=== PATIENT | male | born 1955 | race Caucasian/White ===

== ENCOUNTER 2023-08-19 06:22 | Inpatient (IN) | payer MEDICARE, OTHER, SELFPAY ==
[2023-08-07 09:19] VITALS: BMI 29.7
[2023-08-07 09:47] LABS: % Basophils 0.6 % (0-2); % Eosinophils 4.4 % (0-6); % Immature Granulocytes 0.2 % (0-0.5); % Lymphocytes 23.6 % (20.5-51.1); % Monocytes 8.7 % (1.7-9.3); % Neutrophils 62.5 % (42.2-75.2); Absolute Eosinophils 0.2 10^3/uL (0-0.7); Absolute Lymphocytes 1.2 10^3/uL (1.2-3.4); Absolute Monocytes 0.5 10^3/uL (0.1-0.6); Absolute Neutrophils 3.2 10^3/uL (1.4-6.5); Hematocrit 39.7 % (39.0-52.0); Mean Corp Hgb Conc. 35.3 g/dL (33.0-37.0); Mean Corpuscular Hgb 32.2 pg (27.0-31.0); Mean Corpuscular Volume 91.3 fL (80.0-94.0); Mean Platelet Volume 8.9 fL (7.4-10.4); Nucleated Red Blood Cells % 0 % (-); Platelet Count 345 10^3/uL (130-400); Red Blood Cell Count 4.35 10^6/uL (4.70-6.10); Red Cell Dist. Width 13.2 % (11.5-14.5); White Blood Cell Count 5.2 10^3/uL (4.8-10.8)
[2023-08-07 09:58] LABS: INR 1.04; PT 13.6 Sec (11.4-14.6)
[2023-08-07 09:59] LABS: APTT 29.2 Sec (23.4-35.0); Blood Urea Nitrogen 17 mg/dl (9-20); Calcium 9.4 mg/dl (8.4-10.2); Carbon Dioxide 25 mmol/L (22-30); Chloride 108 mmol/L (98-107); Estimated Creatinine Clearance 52 ml/min; Glucose 100 mg/dl (70-99); Potassium 4.3 mmol/L (3.5-5.1); Sodium 136 mmol/L (135-145); eGFR 59.47
[2023-08-19] VITALS (42 sets, daily range): BP systolic 80–139; BP diastolic 59–91; PULSE 73; BMI 28.9; BMI 29.4
[2023-08-19] MEDS: BACTROBAN NASAL 1 GRAM NASAL (06:52)
[2023-08-19] MEDS: PERIDEX 0.12% ORAL RINSE 15 ML PO (06:52)
[2023-08-19] MEDS: NSS 500 IV (06:53)
--- NOTE | 2023-08-19 07:50 | W.IMMPOSTOP ---
Surgical Immed Post Op Note
-
Primary Surgeon: Gene Bledsoe III, MD
Assisting Surgeon: Saeed Chen MD
Pre-op Diagnosis: R Carotid Stenosis
Post-op Diagnosis: R Carotid Stenosis
Procedure Performed: Right Carotid Transcatheter Carotid Revascularization
Anesthesia Type: General
Specimen / Cultures: NA
Estimated Blood Loss: 10cc
Complications: NA
Operative Findings:
-5cm incision made centered between heads of SCM.
-Electrocautery and sharp dissection carried to level of common carotid
-Control of common carotid with vessel loops
-Purse string sutures with 5-0 prolene placed
-The left common femoral vein was accessed
-The CCA was cannulated using a micropuncture wire and Seldinger technique was used to advance an 8FR sheath.
-Angiogram of the carotid was performed to locate exact area of ICA stenosis
-Reverse flow cannula was connected to femoral vein, tested, and turned on
-9000u heparin given
-Carotid clamped
-A 5.5x30 balloon was advanced to level of stenosis and dilated and removed
-Stent deployed
-Hemostasis achieved
-SCM re-approximated, 10cc of local anesthetic given, subcutaneous tissue, and skin closed, skin glue overlying.
-Patient 5/5 in all extremities, no cranial nerve deficits.
-
--- NOTE | 2023-08-19 08:00 | W.SUR.PREOP ---
Pre-Operative Surgical Note
-
I have examined this patient prior to the performance of the scheduled procedure.
The patient's condition is unchanged from the time of the current History and
Physical and the patient is able to undergo the scheduled procedure.
[2023-08-19 09:03] LABS: ACT-LR - POC 331 Seconds (116-155)
[2023-08-19 10:31] LABS: Hematocrit 37.7 % (39.0-52.0); Hemoglobin 13.3 g/dL (13.0-18.0); Mean Corp Hgb Conc. 35.3 g/dL (33.0-37.0); Mean Corpuscular Hgb 32.4 pg (27.0-31.0); Mean Corpuscular Volume 91.7 fL (80.0-94.0); Mean Platelet Volume 8.6 fL (7.4-10.4); Platelet Count 262 10^3/uL (130-400); Red Blood Cell Count 4.11 10^6/uL (4.70-6.10); White Blood Cell Count 7.1 10^3/uL (4.8-10.8)
--- NOTE | 2023-08-19 10:42 | OR.RPT ---
Operative Report
Operative Report
Date of Operation: 08/19/2023
Pre Op Diagnosis: Asymptomatic right carotid artery stenosis
Post Op Diagnosis: Asymptomatic right carotid artery stenosis
Procedure:
1.) RIGHT trans-carotid artery revascularization with flow reversal embolic protection
9 mm x 40 mm ENROUTE STENT
5.5 mm x 30 mm balloon angioplasty, pre-stent
2.) Ultrasound-guided percutaneous access to the left common femoral vein
Surgeon: Gene Bledsoe III, MD
Chemical Sales Representative: Saeed Chen MD PGY-1
Anesthesia: General
Fluoroscopy:
7.5 min
213 mGy
22.28 Gy.cm2 DAP
Complications: None
Estimated Blood Loss: Minimal
History and Indications for Procedure: 67-year-old male with asymptomatic carotid artery stenosis. He was deemed to be high risk for carotid endarterectomy due to the high nature of the internal carotid artery lesion on preoperative CTA.
Procedure in Detail: Jacob Stallings was correctly identified and placed supine on the operating table. After adequate induction of anesthesia the right neck was positioned appropriately. Using ultrasound guidance I identified the right common
carotid artery at the base of the right neck in between the heads of the sternocleidomastoid muscle. The right neck was then prepped and draped in usual sterile fashion. Similarly the bilateral groins were prepped and draped in the usual sterile
fashion. Preoperative antibiotics were administered. A timeout procedure was performed with the nursing and anesthesia staff confirming the patient's identity as well as the nature and laterality of the procedure.
A small vertical incision was made at the base of the right neck and between the 2 heads of the sternocleidomastoid muscle. Using electrocautery and sharp dissection the right common carotid artery was exposed. The vagus nerve was identified and
protected. The proximal right common carotid artery was encircled with a vessel loop. A 5-0 Prolene pursestring suture was then placed around the proposed puncture site in the right common carotid artery. Systemic heparin was administered at this
point.
Under ultrasound guidance I accessed the left common femoral vein with a micropuncture needle. I then advanced the micro-dilator and sheath over the microwire. A Nuvosunson wire was then easily advanced through the micro-sheath and the 8 Micronesian sheath
was inserted. The side port was aspirated and then flushed with heparinized saline solution.
The right common carotid artery was then accessed with the marked micropuncture needle through the pursestring site. The microwire was then easily advanced to the clear celia on the wire. The micro-sheath was then easily advanced over the wire to the
3 cm celia. The inner dilator and wire were removed. An initial carotid arteriogram was then performed which demonstrated a high-grade stenosis of the right internal carotid artery. The external carotid artery was patent. The common carotid artery
was patent. The location of the carotid bifurcation was marked on the screen. The external carotid artery was selected with the microwire and the micro dilator and sheath were advanced over the wire carefully to the last celia on the sheath. The
J-wire was then carefully inserted through the microsheath to the external carotid artery. The 8 Micronesian arterial sheath was then inserted carefully under radiographic visualization keeping the J-wire tip in the external carotid artery. The sheath
was then secured in place at the skin level using 2 separate silk sutures. The ENROUTE METALSMITH HELPER flow reversal system was connected, switched to the high setting and the patient was placed on passive flow reversal. Flow reversal was confirmed with the
heparin saline syringe test on the groin sheath.
At this point an additional arteriogram was performed via the 8 Fr carotid sheath in a more lateral projection to splay the carotid bifurcation. The screen was marked and a roadmap was set. The right common carotid artery vessel loop was secured at
this point and the patient was placed on high flow flow reversal. Under roadmap guidance the right internal carotid artery lesion was crossed with a 0.014 wire. The tip of the wire was placed in the distal internal carotid artery. A 5.5 mm x 30 mm
angioplasty balloon was then positioned across the high-grade stenosis in the right internal carotid artery. Predilatation angioplasty was performed with this balloon. The balloon was removed over the wire. A 9 mm x 40 mm ENROUTE stent was then
positioned in the desired location under roadmap guidance and deployed successfully. The delivery system was removed.
Completion arteriogram was performed with temporary cessation of flow reversal. This demonstrated an excellent technical result. The carotid stent was widely patent and in the desired location. There was brisk flow through the stent and into the
intracranial circulation. No significant residual stenosis was identified. No filling defects or other abnormalities were noted in the common carotid artery.
The right common carotid artery vessel loop was then released. The ENROUTE METALSMITH HELPER flow reversal system was disconnected from both the common carotid artery and femoral venous sheaths. The common carotid artery sheath was then removed and the 5-0
Prolene pursestring secured. Protamine was administered. The suture line was closely inspected and hemostasis was achieved. Hemostasis was achieved in the wound bed. The wound was irrigated with saline solution. There was an excellent pulse in the
common carotid artery proximal and distal to the sheath entry site repair. The wound was then closed in layers and skin glue was applied.
The left femoral venous sheath was pulled and direct pressure was held over the puncture site for 10 minutes. Hemostasis was achieved and a sterile dressing was applied.
The patient awoke from general anesthesia with no immediate neurologic deficits. He was taken to the recovery room in stable condition.
Attestation: I was present and responsible for the entire procedure
Signed:
Gene Bledsoe III, MD
[facility]
[phone] (cell)
[2023-08-19 10:58] LABS: Blood Urea Nitrogen 19 mg/dl (9-20); Calcium 8.1 mg/dl (8.4-10.2); Carbon Dioxide 19 mmol/L (22-30); Chloride 108 mmol/L (98-107); Estimated Creatinine Clearance 75 ml/min; Glucose 124 mg/dl (70-99); Potassium 4.4 mmol/L (3.5-5.1); Sodium 134 mmol/L (135-145); eGFR > 60.00
--- NOTE | 2023-08-19 11:36 | CON.INTV ---
Consultation
Consultation Request
Date/Time Consultation Requested: 08/19/2023
Date/Time Consultation Performed: 08/19/2023
Requesting Provider: Dr. Bledsoe
Performing Provider: Dr. Carlos Enrique Cohn
Reason for Consultation: Status post transcarotid artery revascularization with flow reversal
Medical History
-
History of Present Illness:
67-year-old man with past medical history significant for BPH, hyperlipidemia, diagnosed with right carotic stenosis. Admitted for revascularization. Surgery underwent on 08/19/2023 without complications.
Currently in the critical care unit. Is awake, following commands. Denies any significant pain.
Hemodynamically stable.
Patient reports some discomfort in his back and incisional. 2 out of 10.
He is able to give history and converse.
Denies any other complaints.
Past Medical History
Past Medical History: Other (See assessment and plan section)
Social History
Tobacco: Non-smoker
Drug: None
Living: With Family
Family History
Family History: Reviewed & Not Pertinent
Allergies / Home Medications
Allergies
Allergy/AdvReac Type Severity Reaction Status Date / Time
metronidazole [From Flagyl] Allergy Swelling Verified 08/04/23 12:24
Home Medications
Medication Instructions Recorded Confirmed Last Taken Type
aspirin 81 mg tablet,delayed 81 mg PO DAILY 08/04/23 08/19/23 08/18/23 08:00 History
release
atorvastatin 20 mg tablet (Lipitor) 20 mg PO HS 08/04/23 08/19/23 08/18/23 19:00 History
cholecalciferol (vitamin D3) 125 125 mcg PO DAILY 08/04/23 08/19/23 08/18/23 08:00 History
mcg (5,000 unit) tablet (Vitamin
D3)
clopidogrel 75 mg tablet (Plavix) 75 mg PO DAILY 08/04/23 08/19/23 08/18/23 19:00 History
finasteride 5 mg tablet 5 mg PO DAILY 08/04/23 08/19/23 08/18/23 08:00 History
omega 5-tjf-bdl-fish oil 1,000 mg 1 cap PO DAILY 08/04/23 08/19/23 08/19/23 04:00 History
(120 mg-180 mg) capsule (Fish Oil)
vit B6-mag cit,ox-potassium cit 2 tab PO DAILY 08/04/23 08/19/23 08/18/23 08:00 History
3.75 mg-45 mg-45 mg-49.5 mg tablet
ER (Theralith XR)
eszopiclone 3 mg tablet 3 mg PRN PRN sleep 08/19/23 08/19/23 08/16/23 History
lorazepam 1 mg tablet 1 mg PO DAILY PRN anxiety 08/19/23 08/19/23 08/18/23 19:00 History
valacyclovir 1 gram tablet 1,000 mg PO DAILY 08/19/23 08/19/23 08/17/23 08:00 History
Review of Systems
-
History Source: Patient
All other systems: Negative unless noted
Vitals / Labs / Diagnostic Testing
Vital Signs
Temp Pulse Resp BP Pulse Ox
97.5 F 76 11 112/70 99
08/19/23 11:00 08/19/23 11:30 08/19/23 11:30 08/19/23 11:30 08/19/23 11:30
Lab Data
08/19/23 10:23
08/19/23 10:23
Diagnostic Testing:
Physical Exam
-
HEENT: Normocephalic
Cardiovascular: S1/S2
Respiratory: Clear
GI: Soft and Non Distended
Neurology: Awake
General: Respiratory Distress
Assessment
-
Right carotid stenosis: Status post Right Carotid Transcatheter Carotid Revascularization-08/19/2023
-
Conditions present prior admission
Hyperlipidemia
Enlarged prostate
Diverticulitis
Assessment and plan:
Postoperative surgical intensive care unit monitoring
Supplemental oxygen as needed
Incentive spirometry
Aspiration precautions
Chest x-ray 08/19/2023: Reviewed, showed no acute abnormalities.
Incision is intact
No stridor on exam
No hematoma noted.
Continue analgesia with narcotics IV and orally, monitor respiratory status closely.
Neuro and vascular checks per protocol.
Vascular surgery following-correspondence and operative notes reviewed
To start antiplatelets
Monitor blood pressure
Allow for mild permissive hypertension
Cardene drip if needed
Follow hemoglobin, currently stable.
Follow blood sugars
Insulin supplementation as needed
IV fluids, follow electrolytes daily
Advance diet as per protocol
DVT prophylaxis heparin subcu
Early mobilization
[2023-08-19 11:59] LABS: Magnesium 1.7 mg/dl (1.6-2.3)
[2023-08-19] MEDS: NSS 1000 IV ×2 (12:00→22:12)
[2023-08-19] MEDS: PLAVIX 75 MG PO (12:11)
[2023-08-19] MEDS: TYLENOL 650 MG PO ×2 (12:11→23:02)
[2023-08-19] MEDS: LOW STRENGTH ASPIRIN 81 MG PO (12:11)
[2023-08-19] MEDS: DILAUDID 0.5 MG IV (12:13)
--- NOTE | 2023-08-19 12:27 | PTCARENOTE ---
pt arrived to ICU at 11:30 , pt is awake and alert x3 , R neck incision glue intact , wnl , no hematoma , L rad kate with BP 145/73, map goal is 70-90 currently pt is 98 he was given Dilaudid for surgical pain , NSR on monitor , on 2L NC with sats
99% , at bedside , refusing PO intake at this time pt time for HOB to be elevated at 1330
[2023-08-19] MEDS: CARDENE 200 IV (13:40)
--- NOTE | 2023-08-19 13:48 | PTCARENOTE ---
pt started on Cardene at 1340 MAP 99-125 , he is currently at 5mcg map down to 85
--- NOTE | 2023-08-19 17:25 | PTCARENOTE ---
pt continues on Cardizem at 25mcg , pt kate had very poor waveform , unable to get accurate blood pressures , Dr Bledsoe here and aware , pts Sina love DC as ordered
[2023-08-19 18:46] LABS: Hepatitis C Antibody Negative (Negative)
--- NOTE | 2023-08-19 20:20 | PTCARENOTE ---
Received patient AAOx3, following commands, denying pain. Normal sinus/sinus tach, 80s-110s. BP stable, on 2.5 mg cardene to meet MAP goal 70-90. Palpable radial, pedal, and posterior tibial pulses bilaterally. 98% on room air, lung sounds clear.
Abdomen soft, round, present bowel sounds. Urinal to void, no bowel movement. Left groin dressing CDI, no swelling or drainage. Right carotid site pink, glue intact, no swelling or drainage. PIVs patent, WNL. NSS at 80 mls/hr ongoing. Fresh ice
given.
[2023-08-19] MEDS: HEPARIN 5000 UNITS SC (20:52)
[2023-08-19] MEDS: LIPITOR 20 MG PO (22:11)
[2023-08-20] VITALS (12 sets, daily range): BP systolic 104–154; BP diastolic 59–91; BMI 30.1
--- NOTE | 2023-08-20 00:49 | PTCARENOTE ---
Gave patient tylenol for mild pain, otherwise patient assessment unchanged from previous.
[2023-08-20] MEDS: PEPCID 40 MG PO ×2 (02:03→08:04)
--- NOTE | 2023-08-20 04:31 | PTCARENOTE ---
Patient assessment unchanged from previous. Eye mask and ear plugs given per patient request.
[2023-08-20 04:41] LABS: Hematocrit 34.2 % (39.0-52.0); Hemoglobin 12.2 g/dL (13.0-18.0); Mean Corp Hgb Conc. 35.7 g/dL (33.0-37.0); Mean Corpuscular Hgb 31.8 pg (27.0-31.0); Mean Corpuscular Volume 89.1 fL (80.0-94.0); Mean Platelet Volume 8.6 fL (7.4-10.4); Platelet Count 273 10^3/uL (130-400); Red Blood Cell Count 3.84 10^6/uL (4.70-6.10); White Blood Cell Count 11.7 10^3/uL (4.8-10.8)
[2023-08-20 04:54] LABS: APTT 30.9 Sec (23.4-35.0); INR 1.14; PT 14.4 Sec (11.4-14.6)
[2023-08-20 04:58] LABS: Blood Urea Nitrogen 14 mg/dl (9-20); Carbon Dioxide 21 mmol/L (22-30); Chloride 105 mmol/L (98-107); Estimated Creatinine Clearance 96 ml/min; Glucose 106 mg/dl (70-99); Potassium 4.1 mmol/L (3.5-5.1); Sodium 136 mmol/L (135-145); eGFR > 60.00
--- NOTE | 2023-08-20 07:45 | PTCARENOTE ---
Assumed care of patient. Pt rec'd A&Ox3. Pleasant but anxious intermittently. Emotional support provided, as well as, educated pt on plan of care and goals. Anxiety decreased w/ converstion. S1 S2 reg w/ NSR/ST on monitor. aware of
ST....ECG obtained. +PP. No edema. On R/A. Lungs clear. Encouraged coughing and deep breathing. Abdomen round. +BS. Voids in urinal. Skin intact except left groin (D/I dressing) and right lower neck [employer] R[employer]ER, approximated w/ glue, ecchymosis
noted. IVF's capped. VS documented. OOB to chair w/o just monitoring. Tele pack applied to allow for increase mobility. Call beebe within reach. Will continue to monitor closely.
[2023-08-20] MEDS: LOW STRENGTH ASPIRIN 81 MG PO (08:03)
[2023-08-20] MEDS: PROSCAR 5 MG PO (08:03)
[2023-08-20] MEDS: PLAVIX 75 MG PO (08:03)
[2023-08-20] MEDS: VITAMIN D3 (cholecalciferol) 125 MCG PO (08:04)
[2023-08-20] MEDS: HEPARIN 5000 UNITS SC (08:05)
--- NOTE | 2023-08-20 08:53 | W.PN.INTV ---
Today's Communication / Plan
Recommendations
Continue postoperative care
Increase activity as able
Monitor tachycardia
Hopefully can be discharged later today
Assessment
-
Right carotid stenosis: Status post Right Carotid Transcatheter Carotid Revascularization-08/19/2023
-
Conditions present prior admission
Hyperlipidemia
Enlarged prostate
Diverticulitis
Assessment and plan:
Overall doing well postoperative day 1.
Some sinus tachycardia this morning as he was trying to move out of bed.
Asymptomatic.
-
Continue with routine postoperative care
Increase activity as able
Diet as tolerated.
-
From the respiratory status: Clear lung exam. On room air.
Incentive spirometry
Chest x-ray 08/19/2023: showed no acute abnormalities.
Incision is intact-no hematoma noted.
No stridor on exam
Continue analgesia with narcotics IV and orally, monitor respiratory status closely.
Neuro and vascular checks per protocol.
Vascular surgery following-correspondence and operative notes reviewed
Antiplatelet therapy
Hopefully can be discharged later today.
Blood pressures are stable.
Sinus tachycardia, patient is asymptomatic.
Encouraged IV fluids
Increase activity as able and monitor symptoms.
Follow hemoglobin, currently stable.
Discontinue IV fluids from
Diet as tolerated
DVT prophylaxis heparin subcu
Increase activity as able.
-
Hopefully can be discharged later today if sinus tachycardia subsides.
Subjective Dataa
Subjective Data
Date of Service:
Date of Service: August 20, 2023
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
Subjective:
Patient offers no new complaints from
Was not able to sleep all night
Denies nausea, vomiting, headache or blurry vision.
Trying to move out of bed to a chair.
Review of Systems
General: Fever (n)
Cardiopulmonary: Dyspnea (none at rest)
GI: Abdominal Pain (n) and Nausea (n)
Neuro: Headache (n) and Dizziness (n)
Objective Data
Data Reviewed
Vital Signs / I&O / Oxygen:
Vital Signs
Temp Pulse Resp BP Pulse Ox
98.3 F 69 9 122/72 81
08/20/23 07:43 08/20/23 06:00 08/20/23 06:00 08/20/23 06:00 08/20/23 00:45
Intake and Output
08/19/23 08/20/23 08/21/23
06:59 06:59 06:59
Intake Total 1992.5 / 1992.5
Output Total 3025 / 3025
Balance -1032.5 / -1032.5
SaO2 81
Nasal Cannula flow liters per 2
minute
Physical Exam
General: Respiratory Distress (n) and Comfortable
HEENT: Normocephalic and Other (Right cervical incision is intact. No stridor. No hematoma noted.)
Cardiovascular: S1-S2
Respiratory: Clear and Non-Labored Respirations
GI: Soft and Non Distended
Neurology: Awake, Alert, Oriented, AO x 3 and No Motor Deficits
Skin: Warm
Labs/Micro/Reports
Lab Data
08/20/23 04:22
08/20/23 04:22
Laboratory Results
08/19/23 08/20/23
11:29 04:22
PT Cancelled 14.4
INR Cancelled 1.14
APTT Cancelled 30.9
--- NOTE | 2023-08-20 09:19 | W.PN.VS ---
Today's Communication / Plan
-
Below plan reviewed with Dr. Gene Bledsoe III
Assessment/Plan
-
Assessment: 67-year-old man POD #1 RIGHT trans-carotid artery revascularization with flow reversal embolic protection
Plan:
Continue DAPT therapy, of aspirin 81 mg and Plavix 75 mg p.o. daily
Continue statin
OOB to chair with progression of ambulation as tolerated
As needed pain medication
EKG for tachycardia
Discontinue IV fluid
Discontinue arterial line
Possible discharge later this afternoon pending resolution of tachycardia, continued toleration of p.o. diet, and progression of ambulation
Subjective Data
-
Date of Service: August 20, 2023
Patient seen and examined at bedside, reports adequate postoperative pain management. Tolerating p.o. diet.
Objective Data
-
Vital Signs
Temp Pulse Resp BP Pulse Ox
98.3 F 69 9 122/72 81
08/20/23 07:43 08/20/23 06:00 08/20/23 06:00 08/20/23 06:00 08/20/23 00:45
Intake and Output
08/19/23 08/20/23 08/21/23
06:59 06:59 06:59
Intake Total 1992.5 / 1992.5
Output Total 3025 / 3025
Balance -1032.5 / -1032.5
Intake:
Oral fluids 350 / 350
IV fluids (Total) 1642.5 / 1642.5
Nss 1,000 ml @ 80 mls/hr IV . 1520 / 1520
[id number] JAIRO Rx#:[id number]
cardene gtt 122.5 / 122.5
Output:
Urine, Bledsoe 350 / 350
Urine, Voided 2675 / 2675
Lab Results
08/20/23 04:22
08/20/23 04:22
Calcium 9.0 mg/dl (8.4-10.2) 08/20/23 04:22
Magnesium 1.7 mg/dl (1.6-2.3) 08/19/23 10:23
Physical Exam
-
AAOx3
No dyspnea
ABD nondistended and nontender
Right surgical incision CDI, no evidence of hematoma
Bilateral upper extremities and lower extremities with equal strength
--- NOTE | 2023-08-20 09:40 | PTCARENOTE ---
Pt ambulating in halls w/o issue. HR 104 w/ activity. Steady gait noted.
--- NOTE | 2023-08-20 09:54 | W.SUR.POST ---
Addendum entered and electronically signed by ARTURO Marte 08/20/23 10:07:
Entered in error will be deleted
Original Note:
Surgical Immediate Post Op
Note
Pre Op Diagnosis: Symptomatic carotid stenosis
Post Op Diagnosis: Symptomatic carotid stenosis
Procedure Performed: Right carotid endarterectomy with bovine patch pericardium angioplasty
Primary Surgeon: Agustin Clark MD
Assist: ARTURO Domínguez
Anesthesia: GETA
Estimated Blood Loss: 25 mL
Fluids: See anesthesia flowsheet
Drains/Shunts: N/A
Specimens/Cultures: Right carotid plaque
Doppler/Duplex/Angio (Y/N): Y, Doppler
Complications: None
Operative Findings: Post procedure patient moves bilateral upper extremities lower extremities to command and spontaneously
--- NOTE | 2023-08-20 10:07 | CM ---
Reviewed chart, placed a call to patient's to obtain information for assessment. Patient's answered and stated that she could talk. Patient lives with her in a two story home with one step to enter. She described him as independent with
his ADLs and personal care as well as dressing, bathing, toileting and ambulates without use of an assistive device. She denied any DME in the home.
Patient can cook, clean, do manager public and laundry. He drives and can get to his appointments and do all his own shopping.
Patient has never had VN services.
He has a prescription plan and uses [facility] pharmacy in [place] for all of his medications.
His provider is Dr. Robina Brito MD.
Patient's confirmed that she can provide transportation to home when patient is medically cleared.
Plan: Case management will continue to follow and assist with discharge planning. Home with when stable.
--- NOTE | 2023-08-20 11:49 | W.DS.TRANS ---
DC Summary - [employer]
-
Discharge Instructions:
Discharge Diagnosis/Procedures Right TCAR
Diet No restrictions
Activity No strenuous activity
Driving Restrictions Not until seen by your Dr
Bathing Restrictions OK to Shower
Instructions:
Stand-Alone Forms: DC Instr - Vascular OR
Changes to Home Medications: No
Discharge Medications:
DC Medications w/original date entered in [employer]
aspirin 81 mg tablet,delayed release 81 mg PO DAILY Blood Clot Prevention/Tx 08/04/23
atorvastatin 20 mg tablet (Lipitor) 20 mg PO HS High Cholesterol 08/04/23
cholecalciferol (vitamin D3) 125 mcg (5,000 unit) tablet (Vitamin D3) 125 mcg PO DAILY Supplement 08/04/23
clopidogrel 75 mg tablet (Plavix) 75 mg PO DAILY Blood Clot Prevention/Tx 08/04/23
finasteride 5 mg tablet 5 mg PO DAILY Urinary Issue 08/04/23
omega 0-bqi-zrb-fish oil 1,000 mg (120 mg-180 mg) capsule (Fish Oil) 1 cap PO DAILY Supplement 08/04/23
vit B6-mag cit,ox-potassium cit 3.75 mg-45 mg-45 mg-49.5 mg tablet ER (Theralith XR) 2 tab PO DAILY Supplement 08/04/23
cyclobenzaprine 10 mg tablet 10 mg PO TID PRN muscle spasm 08/19/23
eszopiclone 3 mg tablet 3 mg PO HSPRN PRN sleep 08/19/23
lorazepam 1 mg tablet 1 mg PO HSPRN PRN SLEEP 08/19/23
valacyclovir 1 gram tablet 2,000 mg PO .SEE INSTRUCTIONS PRN COLD SORES 08/19/23
Home Medication Changes
Pending Results: No
--- NOTE | 2023-08-20 12:15 | PTCARENOTE ---
D/c orders rec'd. IV sites and telemetry d/c'd. Reviewed all d/c orders w/ pt and pt's ...all questions answered. Staff escort in wheelchair.
--- NOTE | 2023-08-21 08:14 | W.DCSUMMARY ---
Discharge Summary
Discharge Data
Date of Admission: 08/19/23
Date of Discharge: 08/20/23
-
Pending Results: No
Hospital Course
Attending: Rakan
Consultants: Pulmonary medicine
Allergies:Flagyl
Procedure with date: RIGHT trans-carotid artery revascularization with flow reversal embolic protection, 9 mm x 40 mm ENROUTE STENT and 5.5 mm x 30 mm balloon angioplasty, pre-stent, ultrasound-guided percutaneous access to the left common femoral
vein 08/19/23
History of present illness: The patient is an 67 age -year-old male with multiple medical conditions including: carotid stenosis, hyperlipidemia, enlarged prostate, and diverticulitis. Patient presented on 08/19/23 for scheduled procedure with Dr.
Gene Bledsoe III. Patient presented at baseline health with no reports of recent illness or trauma.
Hospital Course: Briefly, the patient underwent scheduled trans-carotid artery revascularization without complications, and recovered in PACU. Following recovery phase one and two patient was transferred to intensive care unit per protocol for
continued hemodynamic monitoring. Parker consulted to aid in medical management from a critical care perspective. POD #1 08/20/23 Patient neurologically intact, face symmetrical, and tolerating PO diet. Right upper chest/base of neck surgical
incision clean, dry, and intact with suture line well approximated and soft. No evidence of hematoma. Arterial line and IV fluids discontinued. Patient able to ambulate without difficulty or incident. Patient stable for discharge to home.
Prescriptions and follow up appointment are included in the DC summary medical office representative note. All instructions were given to the patient in both written and verbal form and the patient expressed understanding.
Discharge Plan
-
Patient Disposition: Home (Routine Discharge)
Discharge Diagnosis/Procedures: Right TCAR
Condition: Good
Diet: No restrictions
Activity: No strenuous activity
Driving Restrictions: Not until seen by your Dr
Bathing Restrictions: OK to Shower
Activity Restrictions/Additional Instructions:
If you experience severe constant headache, weakness to an arm or leg, change in vision, trouble speaking or any stroke-like symptom, call 911 immediately
If you experience swelling, increased bruising, drainage from neck site, or fever, please call the office
Stand Alone Forms: DC Instr - Vascular OR
Referrals:
Mindy Garcia PA-C [Specified Professional Personl] - 09/02/23 8:15 am (Vascular follow up)
Mik Robins MD [Family Provider] -
Prescriptions:
Continued
atorvastatin [Lipitor] 20 mg Tablet
20 mg PO HS
clopidogrel [Plavix] 75 mg Tablet
75 mg PO DAILY
finasteride 5 mg Tablet
5 mg PO DAILY
aspirin 81 mg Tablet,Delayed Release (Dr/Ec)
81 mg PO DAILY
cholecalciferol (vitamin D3) [Vitamin D3] 125 mcg (5,000 unit) Tablet
125 mcg PO DAILY
omega 6-[id number]-tzd-fish oil [Fish Oil] 1,000 mg (120 mg-180 mg) Capsule
1 cap PO DAILY
Theralith XR 3.75-45-45-49.5 mg Tablet Extended Release
2 tab PO DAILY
lorazepam 1 mg Tablet
1 mg PO HSPRN PRN (Reason: SLEEP)
eszopiclone 3 mg Tablet
3 mg PO HSPRN PRN (Reason: sleep)
valacyclovir 1 gram Tablet
2,000 mg PO .SEE INSTRUCTIONS PRN (Reason: COLD SORES)
Rx Instructions:
2000g daily x 2 days
cyclobenzaprine 10 mg Tablet
10 mg PO TID PRN (Reason: muscle spasm)
Discharge Orders:
Discharge Patient (As Directed); Ordered 08/20/23
Ordered By: Luz Olvera
Discharge Date and Time
Discharge Date/Time: 08/20/23 12:36
== END 2023-08-20 12:36 | disposition home or self-care (01) | DRG 36 ==
LOC: ICU 06:22
PROVIDERS: Nurse Practitioner; ADMITTING PHYSICIAN Surgery Vascular Surgery; CONSULT PHYSICIAN Internal Medicine Critical Care Medicine; FAMILY PHYSICIAN Family Medicine
PROC: X2AH336 Cerebral Embolic Filtration, Extracorporeal Flow Reversal Circuit from Right Common Carotid Artery, Percutaneous Approach, New Technology Group 6 (ICD-10-PCS; 2023-08-19)
PROC: 037K3DZ Dilation of Right Internal Carotid Artery with Intraluminal Device, Percutaneous Approach (ICD-10-PCS; 2023-08-19)
PROC: B3161ZZ Fluoroscopy of Right Internal Carotid Artery using Low Osmolar Contrast (ICD-10-PCS; 2023-08-19)
DX: I65.21 Occlusion and stenosis of right carotid artery (principal); N40.0 Benign prostatic hyperplasia without lower urinary tract symptoms; E78.5 Hyperlipidemia, unspecified; Z79.82 Long term (current) use of aspirin; Z79.02 Long term (current) use of antithrombotics/antiplatelets
CPT/HCPCS: 36415; 37215; 71045; 71046; 76937; 80048; 83735; 85025; 85027; 85610; 85730; 86803; 86850; 86900; 86901; 87070; 93005; C1769; C1876; C1884; C1894; Q9967

== ENCOUNTER → 2023-09-02 08:47 | Outpatient (REF) | payer MEDICARE, OTHER, SELFPAY ==
[2023-09-02 09:59] LABS: HDL Cholesterol 54 mg/dl; LDL Cholesterol, Calculated 85 mg/dl; Total Cholesterol 161 mg/dl (50-199); Triglyceride 112 mg/dl (10-149); Very Low Density Lipoprotein 22 mg/dl (0-30)
== END ==
LOC: REG 08:47
PROVIDERS: ATTENDING PHYSICIAN Internal Medicine Cardiovascular Disease; FAMILY PHYSICIAN Family Medicine
DX: E78.2 Mixed hyperlipidemia (principal)
CPT/HCPCS: 36415; 80061

== ENCOUNTER → 2023-10-01 10:50 | Outpatient (REF) | payer MEDICARE, OTHER, SELFPAY | LOC: RAD 10:50 | PROVIDERS: ATTENDING PHYSICIAN Registered Nurse; FAMILY PHYSICIAN Family Medicine | DX: I65.23 Occlusion and stenosis of bilateral carotid arteries (principal) | CPT/HCPCS: 93880 ==

== ENCOUNTER → 2025-02-24 10:59 | Outpatient (REF) | payer MEDICARE, OTHER, SELFPAY ==
[2025-02-24 12:32] LABS: ALT (SGPT) 27 U/L (0-50); AST (SGOT) 26 U/L (17-59); Albumin 4.4 g/dl (3.5-5.0); Alkaline Phosphatase 53 U/L (38-126); Blood Urea Nitrogen 17 mg/dl (9-20); Calcium 9.1 mg/dl (8.4-10.2); Carbon Dioxide 24 mmol/L (22-30); Chloride 104 mmol/L (98-107); Glucose 97 mg/dl (70-99); HDL Cholesterol 39 mg/dl; LDL Cholesterol, Calculated 100 mg/dl; Potassium 4.5 mmol/L (3.5-5.1); Sodium 136 mmol/L (135-145); Total Protein 7.0 g/dl (6.3-8.2); Very Low Density Lipoprotein 16 mg/dl (0-30); eGFR > 60.00
== END ==
LOC: REG 10:59
PROVIDERS: ATTENDING PHYSICIAN Internal Medicine Cardiovascular Disease; FAMILY PHYSICIAN Family Medicine
DX: E78.2 Mixed hyperlipidemia (principal)
CPT/HCPCS: 36415; 80053; 80061